=== PATIENT | male | born 1960 | race Caucasian/White ===

== ENCOUNTER 2024-01-22 07:02 | Day surgery (SDC) | payer MEDICARE, OTHER ==
[2024-01-22] MEDS: Lactated Ringers 1,000 ML IV SCH (07:15)
[2024-01-22] MEDS ORDERED: Lidocaine 1% 4 ML ONE (07:36)
[2024-01-22] MEDS ORDERED: Propofol 200 MG/20 ML SDV ONE ×4 (07:36→09:51)
== END 2024-01-22 10:55 ==
LOC: JD.SDS 07:02
PROVIDERS: ATTEND Surgery
DX: Z12.11 Encounter for screening for malignant neoplasm of colon (principal); D12.0 Benign neoplasm of cecum; D12.3 Benign neoplasm of transverse colon; D12.4 Benign neoplasm of descending colon; K64.8 Other hemorrhoids; K57.30 Diverticulosis of large intestine without perforation or abscess without bleeding; K43.2 Incisional hernia without obstruction or gangrene; I25.10 Atherosclerotic heart disease of native coronary artery without angina pectoris; E78.00 Pure hypercholesterolemia, unspecified; I10 Essential (primary) hypertension; Z79.82 Long term (current) use of aspirin; Z79.899 Other long term (current) drug therapy; Z88.5 Allergy status to narcotic agent; Z87.891 Personal history of nicotine dependence; Z86.010 Personal history of colon polyps
CPT/HCPCS: 45380; J2704; J3490; J7120

== ENCOUNTER 2025-04-22 09:26 | Day surgery (SDC) | payer MEDICARE, OTHER ==
[~2025-04-22 09:26] MED LIST: Sodium Chloride 0.9% 10 ML Syringe FLUSH PRN; Sodium Chloride 0.9% 10 ML Syringe FLUSH SCH
[2025-04-22] MEDS: Lactated Ringers 1,000 ML IV SCH (10:15)
[2025-04-22] MEDS ORDERED: fentaNYL 250 MCG/5 ML SDV ONE (10:56)
[2025-04-22] MEDS ORDERED: propofoL 1,000 MG/100 ML 100 ML ONE (10:56)
[2025-04-22] MEDS ORDERED: Esmolol 100 MG/10 ML SDV ONE (10:57)
[2025-04-22] MEDS ORDERED: dexmedeTOMIDine HCl 200 MCG/2 ML SDV ONE (10:57)
[2025-04-22] MEDS ORDERED: Dexamethasone 4 MG/ML 5 ML MDV ONE (10:57)
[2025-04-22] MEDS ORDERED: Glycopyrrolate 0.2 MG/ML 2 ML SDV ONE (11:05)
[2025-04-22] MEDS ORDERED: Ondansetron 4 MG/2 ML SDV IVPUSH PRN (11:11)
[2025-04-22] MEDS ORDERED: fentaNYL 100 MCG/2 ML SDV IVPUSH PRN (11:11)
[2025-04-22] MEDS: EPINEPHrine 1 MG/ML SDV ONE (11:55)
[2025-04-22] MEDS ORDERED: ePHEDrine 50 MG/ML SDV ONE (12:00)
[2025-04-22] MEDS ORDERED: Lactated Ringers 1,000 ML ONE (12:01)
== END 2025-04-22 15:25 | disposition home or self-care (01) ==
LOC: JD.SDS 09:26
PROVIDERS: ATTEND Surgery
DX: K43.9 Ventral hernia without obstruction or gangrene (principal); I10 Essential (primary) hypertension; I25.10 Atherosclerotic heart disease of native coronary artery without angina pectoris; E78.5 Hyperlipidemia, unspecified; Z87.891 Personal history of nicotine dependence; Z88.8 Allergy status to other drugs, medicaments and biological substances; Z88.5 Allergy status to narcotic agent; Z79.82 Long term (current) use of aspirin; Z79.899 Other long term (current) drug therapy
CPT/HCPCS: J0169; J0665; J0690; J1100; J1596; J1805; J2003; J2704; J3010; J3490; J7120